=== PATIENT | female | born 1970 | race Caucasian/White ===

== ENCOUNTER 2020-04-08 18:55 | Inpatient (IN) | payer OTHER ==
[~2020-04-08] VITALS: Ht 162.6 cm; Wt 90.7 kg
[2020-04-08] MEDS ORDERED: ONDANSETRON HCL 4 MG/2 ML VIAL IV ONE ×3 (19:45→20:45)
[2020-04-08] MEDS ORDERED: InsuLIN REG 1unit/0.01ml Soln (100units/ml) IV ONE (19:45)
[2020-04-08] MEDS ORDERED: SODIUM CHLORIDE 0.9% 1,000 ML IV ONE (19:45)
[2020-04-08 20:28] LABS: Basophils # (auto) 0.1 10 ^3/uL (0-0.2); Eosinophils # (auto) 0 10 ^3/uL (0-0.8); Monocytes # (auto) 0.2 10 ^3/uL (0-1.3)
[2020-04-08 20:30] LABS: Hematocrit 41.2 % (36.0-46.0)
[2020-04-08 20:37] LABS: Hemoglobin 11.4 g/dL (12.2-16.2); Lymphocytes # (auto) 0.8 10 ^3/uL (0.4-5.4); Lymphocytes % (auto) 6.8 % (10.0-50.0); Mean Corpuscular Hemoglobin 27.1 pg (28.0-32.0); Mean Corpuscular Hgb Conc. 27.6 g/dL (32.0-36.0); Monocytes % (auto) 1.9 % (0.0-12.0); Neutrophils # (auto) 10.2 10 ^3/uL (1.6-8.6); Neutrophils % (auto) 90.3 % (37.0-80.0); Platelet Count (auto) 298 10^3/uL (140-450); Red Cell Distribution Width 15.1 % (11.8-14.3); White Blood Cell 11.3 10^3/uL (4.4-10.8)
[2020-04-08 20:40] LABS: INR 0.96 (0.9-1.15); Partial Thromboplastin Time 30.2 sec (23.0-31.2)
[2020-04-08 20:45] LABS: Albumin 3.7 g/dL (3.4-5.0); Anion Gap 26 (5-15); Blood Urea Nitrogen 63 mg/dL (7-18); Calcium 8.8 mg/dL (8.5-10.1); Carbon Dioxide 10 mmol/L (21-32); Chloride 85 mmol/L (98-107); Sodium 121 mmol/L (136-145)
[2020-04-08 20:47] LABS: Alanine Aminotransferase 21 U/L (13-56); Aspartate Aminotransferase 12 U/L (15-37); GFR African American 24 mL/min; GFR Non-African American 20 mL/min
[2020-04-08 20:54] LABS: Alkaline Phosphatase 101 U/L (45-117); Bilirubin, Total 0.5 mg/dL (0.2-1.0); Total Protein 8.1 g/dL (6.4-8.2)
[2020-04-08 21:04] LABS: BUN/Creatinine Ratio 23.3; Glucose 1071 mg/dL (74-106)
[2020-04-08 21:05] LABS: Potassium 7.4 mmol/L (3.5-5.1)
[2020-04-08] MEDS ORDERED: INSULIN LANTUS (GLARGINE) 1 /0.01ml (100units/ml) SC ONE (21:15)
[2020-04-08] MEDS ORDERED: InsuLIN R (HUMAN) 100 UNITS in SODIUM CHL 0.9% 99 ML IV SCH ×2 (21:15→23:15)
[2020-04-08] MEDS ORDERED: DEXTROSE (50%) 50ML SYRG IV PRN ×2 (21:15→23:15)
[2020-04-08] MEDS ORDERED: SODIUM BICARBONATE 8.4 % INJ 50ML VIAL IV ONE ×2 (21:15→22:45)
[2020-04-08] MEDS: SODIUM CHLORIDE 0.9% 1,000 ML IV SCH ×2 (22:20→23:15)
[2020-04-08] MEDS: ACCU-CHEK COMFORT CURVE STRIP VI SCH (22:30)
[2020-04-08] MEDS ORDERED: DOXYCYCLINE 100MG/250ML 250 ML IV ONE (22:45)
[2020-04-08] MEDS ORDERED: NITROGLYCERIN 0.4 MG SL TAB SL PRN (22:45)
[2020-04-08] MEDS ORDERED: ACETAMINOPHEN 325 MG TAB PO PRN (22:45)
[2020-04-08] MEDS ORDERED: SODIUM ZIRCONIUM CYCL 10 GM PAK PO ONE (22:45)
[2020-04-08] MEDS ORDERED: SODIUM BICARBONATE 50ML VIAL 100 ML in SOD CHL 0.45% 1,000 ML IV ONE (22:45)
[2020-04-08] MEDS ORDERED: MORPHINE SULF INJ 2 MG/ML SYRINGE 1ML IV PRN (22:45)
[2020-04-08] MEDS ORDERED: MORPHINE SULFATE 4 MG/ML SYR/VIAL IV ONE (23:30)
[2020-04-09] MEDS ORDERED: SODIUM BICARBONATE 8.4 % INJ 50ML VIAL IV ONE (00:47)
[2020-04-09] MEDS ORDERED: SODIUM CHLORIDE 0.9% 1,000 ML IV SCH (01:15)
[2020-04-09] MEDS: ACCU-CHEK COMFORT CURVE STRIP VI SCH ×8 (01:30→20:21)
[2020-04-09 03:21] LABS: Basophils # (auto) 0 10 ^3/uL (0-0.2); Basophils % (auto) 0.2 % (0.0-2.0); Eosinophils # (auto) 0 10 ^3/uL (0-0.8); Hemoglobin 11.4 g/dL (12.2-16.2); Lymphocytes # (auto) 1.6 10 ^3/uL (0.4-5.4); Neutrophils # (auto) 10.3 10 ^3/uL (1.6-8.6); Red Cell Distribution Width 14.6 % (11.8-14.3); White Blood Cell 12.4 10^3/uL (4.4-10.8)
[2020-04-09 03:22] LABS: Hematocrit 36.7 % (36.0-46.0); Lymphocytes % (auto) 12.9 % (10.0-50.0); Mean Corpuscular Hgb Conc. 31.2 g/dL (32.0-36.0); Mean Corpuscular Volume 86.7 fL (80.0-100.0); Monocytes # (auto) 0.5 10 ^3/uL (0-1.3); Monocytes % (auto) 3.8 % (0.0-12.0); Neutrophils % (auto) 83.1 % (37.0-80.0); Platelet Count (auto) 266 10^3/uL (140-450); Red Blood Cells 4.24 10^6/uL (4.0-5.20)
[2020-04-09 03:37] LABS: Calcium 8.1 mg/dL (8.5-10.1); Potassium 4.3 mmol/L (3.5-5.1)
[2020-04-09 03:46] LABS: BUN/Creatinine Ratio 22.6
[2020-04-09 06:36] LABS: Urine Bacteria MANY /hpf (None Seen); Urine Blood TRACE /uL (Negative); Urine Budding Yeast MODERATE /hpf (None Seen); Urine Mucus FEW (None Seen); Urine Specific Gravity 1.015 (1.001-1.035); Urine WBC 5 /hpf (0 - 5)
[2020-04-09] MEDS: ONDANSETRON HCL 4 MG/2 ML VIAL IV PRN ×3 (06:42→20:16)
[2020-04-09] MEDS ORDERED: MORPHINE SULF INJ 2 MG/ML SYRINGE 1ML IV PRN ×2 (07:30)
[2020-04-09] MEDS: SODIUM CHLORIDE 0.9% 1,000 ML IV SCH ×2 (07:42→09:15)
[2020-04-09] MEDS ORDERED: D5W/SOD CHL 0.45% 1,000 ML IV SCH (08:15)
[2020-04-09] MEDS: INSULIN LANTUS (GLARGINE) 1 /0.01ml (100units/ml) SC SCH (09:12)
[2020-04-09 09:43] LABS: BUN/Creatinine Ratio 27.9; Calcium 7.2 mg/dL (8.5-10.1); Potassium 3.6 mmol/L (3.5-5.1)
[2020-04-09 09:47] LABS: Basophils # (auto) 0 10 ^3/uL (0-0.2); Eosinophils # (auto) 0 10 ^3/uL (0-0.8); Monocytes # (auto) 0.6 10 ^3/uL (0-1.3); Neutrophils # (auto) 10.2 10 ^3/uL (1.6-8.6); Red Cell Distribution Width 14.5 % (11.8-14.3)
[2020-04-09 09:49] LABS: Basophils % (auto) 0.2 % (0.0-2.0); Eosinophils % (auto) 0.1 % (0.0-7.0); Hematocrit 28.9 % (36.0-46.0); Hemoglobin 9.5 g/dL (12.2-16.2); Lymphocytes % (auto) 8.5 % (10.0-50.0); Mean Corpuscular Hgb Conc. 32.9 g/dL (32.0-36.0); Mean Corpuscular Volume 82.2 fL (80.0-100.0); Neutrophils % (auto) 86.2 % (37.0-80.0); Platelet Count (auto) 239 10^3/uL (140-450); Red Blood Cells 3.52 10^6/uL (4.0-5.20); White Blood Cell 11.8 10^3/uL (4.4-10.8)
[2020-04-09] MEDS ORDERED: DEXTROSE (50%) 50ML SYRG IV PRN (10:00)
[2020-04-09 10:31] LABS: Magnesium 2.7 mg/dL (1.6-2.6); Phosphorus 1.7 mg/dL (2.5-4.90)
--- NOTE | 2020-04-09 10:35 | NUR ---
RECEIVED REPORT FROM TIMOTHY GRIFFITH R.RN. RE PATIENT STATUS AND FOR CONTINUATION OF CARE
[2020-04-09] MEDS ORDERED: POTASSIUM PHOSPHATE 22 MEQ in SODIUM CHL 0.9% 100 ML IV ONE (10:45)
[2020-04-09] MEDS: SOD CHL 0.45% 1,000 ML IV SCH (10:57)
--- NOTE | 2020-04-09 11:17 | NUR ---
Telemetry admit from ER [facility] admitted to Telemetry unit after SBAR received. Patient oriented to primary RN, unit, room, bed, and unit policies regarding patient care and visiting hours. Patient now on continuous telemetry monitoring, tele box #85 and telemetry reading on arrival to unit IS SINUS RHYTHM RATE 89.VITAL SIGNS TAKEN BP 129/77,HR86,RR17,TEMP:98.3,oxygen 2 LITERS NASAL CANNULA SATURATING 94%CALL LIGHT WITHIN REACH,PATIENT INSTRUCTED AND encouraged to call FOR ASSISTANCE, All questions and concerns addressed, patient verbalized understanding.
[2020-04-09] MEDS: InsuLIN REG 1unit/0.01ml Soln (100units/ml) SC SCH ×3 (12:00→20:15)
--- NOTE | 2020-04-09 12:00 | NUR ---
ADMISSION ASSESSMENT DONE MID LINE TO RIGHT UPPER ARM IN PLACE,BENIGN WITH IVF OF 1/2 NS AT 100 CC/HR,G320 TO RIGHT LOWER ARM HEP LOCK,INSTRUCTED NOTHING TO EAT OR DRINK AT THIS TIME VERBALIZED UNDERSTANDING
--- NOTE | 2020-04-09 12:30 | NUR ---
PATIENT OOB AMBULATED TO RESTROOM WITH ASSISTANCE,NOTED TO HAVE INSULIN PUMP WITH HER,PATIENT STATED CA NOT TURN IT OFF
[2020-04-09] MEDS ORDERED: MULTLIQ36 OR (12:45)
[2020-04-09] MEDS ORDERED: ALLO100T PO (12:45)
[2020-04-09] MEDS ORDERED: FURO1TAB33 PO (12:45)
[2020-04-09] MEDS ORDERED: METH5T PO (12:45)
[2020-04-09] MEDS ORDERED: ATOR20TA PO (12:45)
[2020-04-09] MEDS ORDERED: ASPI-543 PO (12:45)
[2020-04-09] MEDS ORDERED: SERT-274 PO (12:45)
[2020-04-09] MEDS ORDERED: HYDR-3682 PO (12:45)
[2020-04-09] MEDS ORDERED: ATOR10TA PO (12:45)
[2020-04-09] MEDS ORDERED: CHOL4POW3 PO (12:45)
[2020-04-09] MEDS ORDERED: CHOL20007 OR (12:45)
[2020-04-09] MEDS ORDERED: BUTA-280 OR (12:45)
[2020-04-09] MEDS ORDERED: SACC1CAP3 PO (12:45)
[2020-04-09] MEDS ORDERED: AMLO5TAB15 PO (12:45)
[2020-04-09] MEDS ORDERED: INSUINJ18 SC (12:45)
[2020-04-09] MEDS ORDERED: CALC1TAB64 PO (12:45)
[2020-04-09 13:00] VITALS: BP 129/77
--- NOTE | 2020-04-09 13:09 | NUR ---
THIS RN NOTIFIED THE PRIMARY RN THAT THE PATIENT NEEDS A MRSA SCREEN PER PROTOCOL FOR RECENT ADMISSION IN 30 DAYS.
[2020-04-09] MEDS ORDERED: INFLUENZA QUAD 2020-2021 0.5 ML SYRG IM ONE (13:45)
--- NOTE | 2020-04-09 14:05 | NUR ---
PATIENT C/O BEING SHAKY,REQUESTED BLOOD SUGAR TO BE CHECKED ACCU CHECK RESULT 98,ORANGE JUICE X 1,SMALL BOX GIVEN
--- NOTE | 2020-04-09 14:05 | NUR ---
C/O NAUSEA,NO VOMITING MEDICATED WITH ZOFRAN 4 MG IVP SEE eMAR
--- NOTE | 2020-04-09 14:17 | NUR ---
RIGHT FOOR ,4TH AND 5TH TOE NOTED TO GAVE DRIED POPPED BLISTER,PINK IN COLOR WITH DRY SCABS,PICTURE TAKEN
--- NOTE | 2020-04-09 14:25 | NUR ---
MRSA SWAB TO NARES DONE AND SENT TO LAB FOR STUDY
--- NOTE | 2020-04-09 15:00 | NUR ---
PATIENT STATED WILL GET FLU VACCINE PRIOR TO DISCHARGE
[2020-04-09 15:34] LABS: BUN/Creatinine Ratio 27.3; Calcium 7.8 mg/dL (8.5-10.1); Potassium 5.1 mmol/L (3.5-5.1)
[2020-04-09 16:46] VITALS: BP 113/67
--- NOTE | 2020-04-09 19:15 | NUR ---
STATUS UNCHANGED,NO DISTRESS,NO DISCOMFORT,NO FURTHER NAUSEA
[2020-04-09 22:00] VITALS: BP 115/67
[2020-04-10] MEDS: ACCU-CHEK COMFORT CURVE STRIP VI SCH ×4 (00:22→12:11)
[2020-04-10] MEDS: InsuLIN REG 1unit/0.01ml Soln (100units/ml) SC SCH ×4 (00:28→11:45)
[2020-04-10] MEDS: SOD CHL 0.45% 1,000 ML IV SCH ×2 (03:16→06:00)
[2020-04-10 06:00] VITALS: BP 124/73
[2020-04-10 06:50] LABS: Basophils # (auto) 0 10 ^3/uL (0-0.2); Basophils % (auto) 0.4 % (0.0-2.0); Eosinophils # (auto) 0.1 10 ^3/uL (0-0.8); Eosinophils % (auto) 0.7 % (0.0-7.0); Hemoglobin 10.4 g/dL (12.2-16.2); Lymphocytes # (auto) 1.4 10 ^3/uL (0.4-5.4); Lymphocytes % (auto) 15.6 % (10.0-50.0); Mean Corpuscular Hemoglobin 27.6 pg (28.0-32.0); Mean Corpuscular Hgb Conc. 32.5 g/dL (32.0-36.0); Mean Corpuscular Volume 84.9 fL (80.0-100.0); Monocytes # (auto) 0.3 10 ^3/uL (0-1.3); Neutrophils # (auto) 7.4 10 ^3/uL (1.6-8.6); Neutrophils % (auto) 80.3 % (37.0-80.0); Platelet Count (auto) 216 10^3/uL (140-450); Red Blood Cells 3.76 10^6/uL (4.0-5.20); Red Cell Distribution Width 15.2 % (11.8-14.3); White Blood Cell 9.2 10^3/uL (4.4-10.8)
[2020-04-10 07:04] LABS: Calcium 7.7 mg/dL (8.5-10.1); Potassium 3.9 mmol/L (3.5-5.1)
[2020-04-10 08:46] VITALS: BP 139/74
[2020-04-10] MEDS ORDERED: cefTRIAXone 1GM/50ML D5W 50 ML IV SCH (09:00)
[2020-04-10] MEDS: INSULIN LANTUS (GLARGINE) 1 /0.01ml (100units/ml) SC SCH (09:56)
[2020-04-10] MEDS ORDERED: DOXY-286 PO (10:42)
--- NOTE | 2020-04-10 10:45 | NUR ---
MD at Bedside Dr. Meyers was in to see patient and MD left order for patient's discharge and patient aware of order.
[2020-04-10 13:00] VITALS: BP 138/73
[2020-04-10 13:40] VITALS: BP 139/74
[2020-04-10 13:49] VITALS: BP 139/74
--- NOTE | 2020-04-10 15:20 | NUR ---
Discharge instructions given as ordered. Prescribed med filled by [facility] and was given to patient. Encourage to follow up with PMD as instructed. All questions and concerns addressed. Patient verbalized understanding. Medication reconciliation form completed and copy given to patient. Flu vaccine given as ordered. IV removed with catheter intact, pressure dressing applied. Telemetry unit returned to ICU. Patient taken to vehicle via wheelchair with all personal belongings, accompanied by staff and family member. No distress noted at time of departure.
== END 2020-04-10 15:20 | disposition home or self-care (01) | DRG 637 ==
LOC: ER 18:55 → TELE 18:56 → TELE-WESTW 04-09 11:22
PROVIDERS: ADMIT Nurse Practitioner; ATTEND Internal Medicine Pulmonary Disease
DX: E10.11 Type 1 diabetes mellitus with ketoacidosis with coma (principal); J18.9 Pneumonia, unspecified organism; N17.0 Acute kidney failure with tubular necrosis; E87.5 Hyperkalemia; I51.7 Cardiomegaly; Z03.818 Encounter for observation for suspected exposure to other biological agents ruled out; Z88.1 Allergy status to other antibiotic agents; Z88.8 Allergy status to other drugs, medicaments and biological substances; Z90.49 Acquired absence of other specified parts of digestive tract
CPT/HCPCS: 36415; 36600; 71045; 80048; 80053; 81001; 81025; 82010; 82728; 82805; 82962; 83735; 83880; 83930; 84100; 84484; 85025; 85610; 85730; 87081; 96361; 96365; 96375; G0378; J0696; J1815; J2405; J3490